=== PATIENT | female | born 1985 | race Caucasian/White ===

== ENCOUNTER 2020-10-10 10:44 | Emergency (ER) | payer OTHER ==
[2020-10-10 10:48] VITALS: BMI 38.2
[2020-10-10 11:27] VITALS: BP 127/80; PULSE 82; TEMP 98.1
== END 2020-10-10 11:55 | disposition home or self-care (01) ==
LOC: JER 10:44
DX: O36.8130 Decreased fetal movements, third trimester, not applicable or unspecified (principal)
CPT/HCPCS: 99283-25

== ENCOUNTER 2022-09-12 14:30 | Emergency (ER) | payer OTHER ==
[2022-09-12] MEDS ORDERED: SODIUM CHLORIDE 1,000 ML IV STA (14:57)
[2022-09-12 15:03] VITALS: BP 123/71; PULSE 94; RESP 21; TEMP 98.7; BMI 36.8
[2022-09-12 15:33] LABS: INR 1.01 (0.83-1.09); PROTHROMBIN TIME (PATIENT) 11.6 SEC (9.7-13.0)
[2022-09-12 15:34] LABS: HEMATOCRIT 35.1 % (32.4-45.2); HEMOGLOBIN 11.4 G/dL (10.7-15.3); MCHC 32.6 g/dl (32.0-36.0); MEAN CELL VOLUME 85.9 fl (80-96); MEAN PLT VOLUME 8.1 fl (7.5-11.1); PLATELET COUNT 288.3 10^3/uL (134-434); RBC 4.09 10^6/uL (3.60-5.2); RDW 15.3 % (11.6-15.6); WHITE BLOOD COUNT 12.8 10^3/uL (4.0-10.8)
[2022-09-12 15:35] LABS: ACTIVATED PTT 21.4 SECONDS (25.2-36.5)
[2022-09-12 15:41] LABS: ALBUMIN 2.7 g/dl (3.4-5.0); BILIRUBIN,TOTAL 0.7 mg/dl (0.2-1); CALCIUM 8.4 mg/dl (8.5-10); CREATININE 0.4 mg/dl (0.55-1.3); TOT PROT 5.9 g/dl (6.4-8.2)
[2022-09-12 15:46] LABS: PLATELET ESTIMATE ADEQUATE
[2022-09-12 16:55] LABS: N-TERMINAL BNP 46.4 pg/ml (5-125)
[2022-09-12 21:23] LABS: ARTERIAL BLD GAS O2 SATURATION 98.9 % (95-98); ARTERIAL BLOOD GAS BASE EXCESS -4.3 mmol/L (-2-2); ARTERIAL BLOOD GAS PO2 137.1 mmHg (80-100); ARTERIAL BLOOD GAS pH 7.443 (7.350-7.450)
== END 2022-09-12 22:23 | disposition home or self-care (01) ==
LOC: FER 14:30
PROC: 3E0337Z Introduction of Electrolytic and Water Balance Substance into Peripheral Vein, Percutaneous Approach (ICD-10-PCS; principal; 2022-09-12)
DX: O26.893 Other specified pregnancy related conditions, third trimester (principal); R06.02 Shortness of breath; Z3A.34 34 weeks gestation of pregnancy
CPT/HCPCS: 0241U-QW; 36415; 36600; 71275-TC; 76819-TC; 80053; 82803; 83880; 84484; 85027; 85379; 85610; 85730; 93005; 99285-25; Q9967